=== PATIENT | male | born 1995 | race Caucasian/White ===

== ENCOUNTER 2016-04-17 22:55 | Emergency (ER) | payer OTHER ==
[~2016-04-17] VITALS: Ht 182.9 cm; Wt 81.6 kg
--- OUTSIDE RECORDS SUMMARY | 2016-04-17 23:01 | XMS REPORT | Referral Summary ---
Author Author [facility] Organization [facility] Address Unknown Phone Unavailable Care Team Providers Care Endorsement Clerk Name Role Phone Gurwinder Lilly PCP Encounter VC Date(s): 07/27/15 - 07/27/15 [facility] [employer] [facility] [address] [place] [address]- Discharge Diagnosis: Bilateral myopia Discharge Disposition: 01-Home or Self Care Attending Physician: Chicho Coombs OD Admitting Physician: Chicho Coombs OD Vital Signs No data available for this section Problem List Condition Effective Dates Status Health Status Informant Ankle fracture, < 01/27/14 Resolved right(Confirmed) Chronic Active anxiety(Confirmed) Proximal LT Thumb 01/30/12 - 01/27/14 Resolved phalanx base fracture DOI 01/22/2012 REC(Confirmed) Allergies, Adverse Reactions, Alerts Substance Reaction Severity Status codeine Active Medications fexofenadine Oral, 0 Refill(s) Start Date: 03/09/15 Status: OrderedFlonase 50 mcg/inh nasal spray 1 sprays, Nasal, BID, # 16 g, 0 Refill(s), Pharmacy: [email or web address] #[id number] Start Date: 03/09/15 Status: OrderedMiscellaneous DME DME Item Biofinity 8.6 -1.50 -1.50 order 2 bxs and mail to home. USED EYE MED ON GLASSES, Last Exam: 11/17/14, # 1 Each, 0 Refill(s), Supply Start Date: 11/24/14 Status: Ordered Results No data available for this section Immunizations Vaccine Date Refusal Reason tetanus/diphth/pertuss (Tdap) adult/adol 09/09/08 diphtheria/pertussis, acel/tetanus ped 11/14/01 diphtheria/pertussis, acel/tetanus ped 05/11/98 diphtheria/pertussis, whole cell/tetanus 05/11/97 diphtheria/pertussis, whole cell/tetanus 03/15/97 diphtheria/pertussis, whole cell/tetanus 01/06/97 haemophilus b conjugate (HbOC) vaccine 11/10/97 haemophilus b conjugate (HbOC) vaccine 05/11/97 haemophilus b conjugate (HbOC) vaccine 03/15/97 haemophilus b conjugate (HbOC) vaccine 01/06/97 hepatitis A pediatric vaccine 09/12/09 hepatitis A pediatric vaccine 09/09/08 hepatitis B pediatric vaccine 05/11/97 hepatitis B pediatric vaccine 01/06/97 hepatitis B pediatric vaccine 96 influenza virus vaccine, live 04/07/13 influenza virus vaccine, live 02/17/12 measles/mumps/rubella virus vaccine 11/14/01 measles/mumps/rubella virus vaccine 11/10/97 meningococcal conjugate vaccine 10/04/14 meningococcal conjugate vaccine 09/09/08 poliovirus vaccine, inactivated 11/14/01 poliovirus vaccine, inactivated 05/11/97 poliovirus vaccine, inactivated 03/15/97 poliovirus vaccine, inactivated 01/06/97 varicella virus vaccine 09/09/08 varicella virus vaccine 11/10/97 Procedures Procedure Date Related Diagnosis Body Site CLOSED TX OF THE RT ANKLE MED MAL FX 07/07/09 Adenoidectomy hernia Tonsillectomy Social History Social History Type Response Smoking Status Former smoker; Type: Chews tobacco Assessment and Plan Extracted from: Title: Ambulatory Patient Education Author: Chicho Coombs OD Date: Ophthalmology Myopia Nearsightedness (myopia) is when objects that are far away cannot be seen clearly. This usually happens because the eye is either longer than normal or bends (refracts) the light too much. As a result, the image is blurred. Myopia also often develops in the pre-teen years and progresses through the teens. You may see them holding things close to their eyes to see. You may also notice children sitting close to the television or white board in school. It generally stabilizes by the end of the teenage years. Myopia that continues to develop is called progressive myopia. CAUSES Growth spurts in children. Certain drugs and medicines. Some other causes of myopia (secondary myopia) can happen from other medical conditions such as: Developing cataracts. High blood sugar (e.g. uncontrolled diabetes). . Premature . Other diseases of the eye. SYMPTOMS People with myopia have blurred vision in the affected eye(s) for anything far away, but can usually find a point up close at which they can see clearly. DIAGNOSIS An anthropological linguist or railroad car cleaning supervisor can diagnose myopia with tests using a series of lenses in front of the eye and the eye reading chart. TREATMENT Glasses or contact lenses. Ophthalmologists can use painless laser treatments to change the shape of the clear covering at the front of the eye (cornea). SEEK IMMEDIATE MEDICAL CARE IF: You get a rapid blurring of vision in one or both eyes. This information is not intended to replace advice given to you by your health care provider. Make sure you discuss any questions you have with your health care provider. Document Released: 03/25/2006 Document Revised: 06/16/2012 Document Reviewed: [facility] Patient Information 2015 [employer]. No follow up information was provided. Extracted from: Title: Contact Lens Eye Exam am Author: Chicho Coombs OD Date: 07/27/15 Impression and Plan Diagnosis Bilateral myopia ([id number] H52.13, Discharge, Medical). Plan: Procedure, Spectacle prescription and contact lens information. . Patient Instructions: Myopia, 1 year. Prescription: Ophthalmology Rx (ST) Trials given Air Optix Aqua8.6/-1.50 Air Optix Aqua8.6/-1.50 Call [place] .
[2016-04-17] MEDS ORDERED: LACTATED RINGERS 1,000 ML IV ONE (23:29)
[2016-04-17] MEDS ORDERED: KETOROLAC 30 MG/ML VIAL IVP ONE (23:30)
[2016-04-17] MEDS ORDERED: ONDANSETRON 4 MG/2 ML (SDV) Z0FRAN IVP ONE (23:30)
[2016-04-17 23:36] LABS: BASOPHILS % (AUTO) 0 % (0-10); EOSINOPHILS % (AUTO) 0 % (0-10); LYMPHOCYTES # (AUTO) 1.4 X 10^3 (1.0-4.0); LYMPHOCYTES % (AUTO) 13 % (12-44); MEAN CORPUSCULAR HEMOGLOBIN 31 PG (25-34); MEAN CORPUSCULAR HGB CONC 38 G/DL (32-36); MEAN CORPUSCULAR VOLUME 81 FL (80-99); MEAN PLATELET VOLUME 11.3 FL (7.4-10.4); MONOCYTES # (AUTO) 1.2 X 10^3 (0.0-1.0); MONOCYTES % (AUTO) 12 % (0-12); NEUTROPHILS # (AUTO) 7.8 X 10^3 (1.8-7.8); NEUTROPHILS % (AUTO) 74 % (42-75); PLATELET COUNT 213 10^3/uL (130-400); RED BLOOD COUNT 5.59 10^6/uL (4.35-5.85); RED CELL DISTRIBUTION WIDTH 11.9 % (10.0-14.5); WHITE BLOOD COUNT 10.5 10^3/uL (4.3-11.0)
[2016-04-17 23:55] LABS: ALANINE AMINOTRANSFERASE 15 U/L (0-55); ALBUMIN 4.9 G/DL (3.2-4.5); ALCOHOL < 10 MG/DL (<10); ANION GAP 14 MMOL/L (5-14); ASPARTATE AMINO TRANSFERASE 18 U/L (5-34); BILIRUBIN,TOTAL 1.3 MG/DL (0.1-1.0); BLOOD UREA NITROGEN 18 MG/DL (7-18); BUN/CREATININE RATIO 19; CALCIUM 9.4 MG/DL (8.5-10.1); CARBON DIOXIDE 19 MMOL/L (21-32); CHLORIDE 102 MMOL/L (98-107); CREATININE SERUM 0.95 MG/DL (0.60-1.30); GFR ESTIMATED > 60; GLUCOSE 100 MG/DL (70-105); LIPASE 35 U/L (8-78); MAGNESIUM 2.3 MG/DL (1.8-2.4); POTASSIUM 3.6 MMOL/L (3.6-5.0); SODIUM 135 MMOL/L (135-145); TOTAL PROTEIN 7.7 G/DL (6.4-8.2)
[2016-04-18] MEDS ORDERED: NS IV 1000 ML 1,000 ML IV ONE (00:02)
[2016-04-18 00:19] LABS: BILIRUBIN,URINE NEGATIVE (NEGATIVE); KETONES,URINE NEGATIVE (NEGATIVE); LEUKOCYTE ESTERASE ,URINE NEGATIVE (NEGATIVE); NITRITE,URINE NEGATIVE (NEGATIVE); PH,URINE 6 (5-9); PROTEIN,URINE NEGATIVE (NEGATIVE); UROBILINOGEN,URINE NORMAL (NORMAL)
[2016-04-18] MEDS ORDERED: RX-HYOSCYAMINE 0.125 MG SL (LEVSIN) PPK#6 SL STA (01:26)
[2016-04-18] MEDS ORDERED: RX-ONDANSETRON 4 MG ODT (ZOFRAN) PPK #4 SL STA (01:26)
[2016-04-18] MEDS ORDERED: AMOX500C2 PO (01:34)
--- NOTE | 2016-04-18 01:34 | ED General ---
General Chief Complaint: Abdominal/GI Problems Stated Complaint: FLU SYMPTOMS Nursing Triage Note: pt was diagnosed with the stomach flu today at u. diarrhea was unrelieved by meds prescribed to him. Source of Information: Patient Exam Limitations: No Limitations History of Present Illness Time Seen by Provider: 23:20 Initial Comments This 20-year-old male presents to the emergency room with complaints of vomiting and diarrhea today. He also reports having constant congestion and cough for the past 3 weeks. He was seen at [facility] earlier today and was prescribed antidiarrheal medication. This treatment has not been effective. He denies any recent drug or alcohol abuse but admitted to using marijuana about one week ago. He reports cough is improving but GI symptoms are worsening. He has mild generalized abdominal pain and myalgias. Allergies and Home Medications Allergies Coded Allergies: codeine (Unverified Adverse Reaction, Unknown, 04/17/16) Home Medications Amoxicillin 500 Mg Capsule #40 1,000 MG PO BID Prescribed by: AUSTIN RENDON on 04/18/16 0134 Constitutional: no symptoms reportedNo fever EENTM: no symptoms reported Respiratory: see HPI Cardiovascular: no symptoms reported Gastrointestinal: see HPI Genitourinary: no symptoms reported Musculoskeletal: see HPI Skin: no symptoms reported Psychiatric/Neurological: No Symptoms Reported Hematologic/Lymphatic: No Symptoms Reported Past Hvocuvp-Ptebsi-Gfqsbu Hx Patient Social History Alcohol Use: Occasionally Uses Recreational Drug Use: Yes (marijuana) Smoking Status: Never a Smoker Recent Foreign Travel: No Contact w/Someone Who Travel: No Recent Infectious Disease Expo: No Recent Hopitalizations: No Physical Abuse Screen: No Sexual Abuse: No Seasonal Allergies Seasonal Allergies: Yes Surgeries HX Surgeries: Yes (hernia repair) Surgeries: Tonsillectomy Respiratory Hx Respiratory Disorders: No Cardiovascular Hx Cardiac Disorders: No Neurological Hx Neurological Disorders: No Reproductive System Hx Reproductive Disorders: No Genitourinary Hx Genitourinary Disorders: No Gastrointestinal Hx Gastrointestinal Disorders: No Musculoskeletal Hx Musculoskeletal Disorders: No Endocrine Hx Endocrine Disorders: No HEENT HX ENT Disorders: No Cancer Hx Cancer: No Psychosocial Hx Psychiatric Problems: No Integumentary HX Skin/Integumentary Disorder: No Family Medical History Significant Family History: No Pertinent Family Hx Physical Exam Vital Signs Vital Sign - Last 12Hours 04/17/16 04/18/16 23:09 01:30 Temp 99.2 Pulse 89 Resp 18 B/P 119/72 Pulse Ox 95 O2 Delivery Room Air Capillary Refill : General Appearance: WD/WN Mild Distress HEENT: PERRL/EOMI Normal ENT Inspection Pharynx Normal TM Abnormal (R) (Mild erythema with visible effusion) Neck: Normal Inspection Supple Respiratory: Lungs Clear Normal Breath Sounds No Accessory Muscle Use No Respiratory Distress Cardiovascular: Regular Rate, Rhythm No Edema No Murmur Gastrointestinal: Normal Bowel Sounds Soft Tenderness (Mild and generalized) Extremity: Normal Inspection No Pedal Edema Neurologic/Psychiatric: Alert Oriented x3 No Motor/Sensory Deficits Normal Mood/Affect master baker II-XII Norm as Tested Skin: Normal Color Warm/Dry Progress/Results/Core Measures Results/Orders Lab Results Laboratory Tests Test 04/17/16 23:13 Range/Units Alanine Aminotransferase (ALT/SGPT) 15 0-55 U/L Albumin 4.9 H 3.2-4.5 G/DL Alkaline Phosphatase 85 40-136 U/L Anion Gap 14 5-14 MMOL/L Aspartate Amino Transf (AST/SGOT) 18 5-34 U/L BUN/Creatinine Ratio 19 Basophils # (Auto) 0.0 0.0-0.1 10^3/uL Basophils (%) (Auto) 0 0-10 % Blood Urea Nitrogen 18 7-18 MG/DL Calcium Level 9.4 8.5-10.1 MG/DL Carbon Dioxide Level 19 L 21-32 MMOL/L Chloride Level 102 98-107 MMOL/L Creatinine 0.95 0.60-1.30 MG/DL Eosinophils # (Auto) 0.0 0.0-0.3 10^3/uL Eosinophils (%) (Auto) 0 0-10 % Estimat Glomerular Filtration Rate > 60 Glucose Level 100 70-105 MG/DL Hematocrit 45 40-54 % Hemoglobin 17.2 13.3-17.7 G/DL Lipase 35 8-78 U/L Lymphocytes # (Auto) 1.4 1.0-4.0 X 10^3 Lymphocytes (%) (Auto) 13 12-44 % Magnesium Level 2.3 1.8-2.4 MG/DL Mean Corpuscular Hemoglobin 31 25-34 PG Mean Corpuscular Hemoglobin Concent 38 H 32-36 G/DL Mean Corpuscular Volume 81 80-99 FL Mean Platelet Volume 11.3 H 7.4-10.4 FL Monocytes # (Auto) 1.2 H 0.0-1.0 X 10^3 Monocytes (%) (Auto) 12 0-12 % Neutrophils # (Auto) 7.8 1.8-7.8 X 10^3 Neutrophils (%) (Auto) 74 42-75 % Platelet Count 213 130-400 10^3/uL Potassium Level 3.6 3.6-5.0 MMOL/L Red Blood Count 5.59 4.35-5.85 10^6/uL Red Cell Distribution Width 11.9 10.0-14.5 % Serum Alcohol < 10 <10 MG/DL Sodium Level 135 135-145 MMOL/L Total Bilirubin 1.3 H 0.1-1.0 MG/DL Total Protein 7.7 6.4-8.2 G/DL White Blood Count 10.5 4.3-11.0 10^3/uL My Orders Orders-AUSTIN PETTIT MD Alcohol (04/17/16 23:29) Cbc With Automated Diff (04/17/16 23:29) Comprehensive Metabolic Panel (04/17/16 23:29) Drug Screen Stat (Urine) (04/17/16 23:29) Lipase (04/17/16 23:29) Magnesium (04/17/16 23:29) Ua Culture If Indicated (04/17/16 23:29) Saline Lock/Iv-Start (04/17/16 23:29) Lactated Ringers (Lr 1000 Ml Iv Solution (04/17/16 23:29) Ondansetron Injection (Zofran Injectio (04/17/16 23:30) Ketorolac Injection (Toradol Injection) (04/17/16 23:30) Ns Iv 1000 Ml (Sodium Chloride 0.9%) (04/18/16 00:02) Rx-Ondansetron Po (Rx-Zofran Po) (04/18/16 01:26) Rx-Hyoscyamine Tab (Rx-Levsin Sl) (04/18/16 01:26) Medications Given in ED Vital Signs/I&O Progress Note : Progress Note Patient was treated with Toradol, Zofran, and IV fluids with good results. Workup was relatively unremarkable. He was discharged with take-home packets of Levsin and Zofran. Departure Impression Impression: Primary Impression: Nausea vomiting and diarrhea Additional Impressions: Generalized abdominal pain Right otitis media Qualified Code: H66.001 - Acute suppurative otitis media without spontaneous rupture of ear drum, right ear Disposition: 01 HOME, SELF-CARE Condition: Improved Departure-Patient Inst. Decision time for Depature: 01:15 Referrals: [facility] (PCP/Family) Primary Care Physician Patient Instructions: Acute Abdomen (Belly Pain), Child (DC), Ear Infections ( Otitis Media), Viral Gastroenteritis Add. Discharge Instructions: Consume primarily clear liquids until symptoms improve. You may take Tylenol up to 1000 mg every 6 hours as needed for pain. For pain not controlled by Tylenol, add ibuprofen up to 600 mg every 6 hours as needed. You may take Levsin (hyoscyamine) dissolved under the tongue every 4 hours as needed for abdominal cramping and diarrhea. You may take Zofran (ondansetron) dissolved under the tongue every 4 hours as needed for nausea and vomiting. To emergency room if symptoms worsen. Start the antibiotic for your ear infection once the nausea and vomiting resolve. All discharge instructions reviewed with patient and/or family. Voiced understanding. Scripts Amoxicillin 500 Mg Capsule1,000 Mg PO BID #40 CAP Prov:AUSTIN PETTIT MD 04/18/16 AUSTIN PETTIT MD Apr 18, 2016 01:34 Departure Impression Impression: Primary Impression: Nausea vomiting and diarrhea Additional Impressions: Generalized abdominal pain Right otitis media Qualified Code: H66.001 - Acute suppurative otitis media without spontaneous rupture of ear drum, right ear Disposition: 01 HOME, SELF-CARE Condition: Improved Departure-Patient Inst. Decision time for Depature: 01:15 Referrals: [facility] (PCP/Family) Primary Care Physician Patient Instructions: Acute Abdomen (Belly Pain), Child (DC), Ear Infections ( Otitis Media), Viral Gastroenteritis Add. Discharge Instructions: Consume primarily clear liquids until symptoms improve. You may take Tylenol up to 1000 mg every 6 hours as needed for pain. For pain not controlled by Tylenol, add ibuprofen up to 600 mg every 6 hours as needed. You may take Levsin (hyoscyamine) dissolved under the tongue every 4 hours as needed for abdominal cramping and diarrhea. You may take Zofran (ondansetron) dissolved under the tongue every 4 hours as needed for nausea and vomiting. To emergency room if symptoms worsen. Start the antibiotic for your ear infection once the nausea and vomiting resolve. All discharge instructions reviewed with patient and/or family. Voiced understanding. Scripts Amoxicillin 500 Mg Capsule1,000 Mg PO BID #40 CAP Prov:AUSTIN PETTIT MD 04/18/16 AUSTIN PETTIT MD Apr 18, 2016 01:34
== END 2016-04-18 01:50 | disposition home or self-care (01) ==
LOC: ER 22:58
DX: R11.2 Nausea with vomiting, unspecified (principal); R19.7 Diarrhea, unspecified; R10.84 Generalized abdominal pain; H66.92 Otitis media, unspecified, left ear
CPT/HCPCS: 36415; 80053; 80306; 80320; 81000; 83690; 83735; 85025; 96361; 96374; 96375

== ENCOUNTER 2016-12-12 19:23 | Emergency (ER) | payer OTHER ==
[~2016-12-12] VITALS: Ht 182.9 cm; Wt 81.6 kg
[~2016-12-12 19:23] MED LIST: AMOX500C2 PO
--- OUTSIDE RECORDS SUMMARY | 2016-12-12 19:29 | XMS REPORT | Referral Summary ---
Author Author [facility] Organization [facility] Address Unknown Phone Unavailable Care Team Providers Care Chief Crew Scheduler Name Role Phone Fransico Lilly PCP Encounter VC Date(s): 09/20/14 - 09/20/14 [facility] [address] [place] [address] [facility] Discharge Diagnosis: Abdominal pain Discharge Disposition: 01-Home or Self Care Attending Physician: Zeny Urbina Attending Physician: Provider, Immediate Care Vital Signs Most recent to 1 oldest [Reference Range]: Temperature Oral 36.3 degC [36.0-37.6 degC] (09/20/14 8:45 AM) Peripheral Pulse 75 bpm Rate [55-90 bpm] (09/20/14 8:45 AM) Blood Pressure 130/49 mmHg [90-138/45-84 mmHg] (09/20/14 8:45 AM) SpO2 98 % (09/20/14 8:45 AM) Problem List Condition Effective Dates Status Health Status Informant Ankle fracture, < 01/27/14 Resolved right(Confirmed) Chronic Active anxiety(Confirmed) Proximal LT Thumb 01/30/12 - 01/27/14 Resolved phalanx base fracture DOI 01/22/2012 REC(Confirmed) Allergies, Adverse Reactions, Alerts Substance Reaction Severity Status codeine Active Medications fexofenadine Oral, 0 Refill(s) Start Date: 03/09/15 Status: Ordered Flonase 50 mcg/inh nasal spray 1 sprays, Nasal, BID, # 16 g, 0 Refill(s), Pharmacy: [facility] #[id number] Start Date: 03/09/15 Status: Ordered Miscellaneous DME DME Item Biofinity 8.6 -1.50 -1.50 order 2 bxs and mail to home. USED EYE MED ON GLASSES, Last Exam: 11/17/14, # 1 Each, 0 Refill(s), Supply Start Date: 11/24/14 Status: Ordered Results Hematology Most recent to 1 oldest [Reference Range]: WBC [5.0-10.0 6.0 10*3/uL 10*3/uL] (09/20/14 9:36 AM) RBC [4.20-6.00 5.09 10*6/uL 10*6/uL] (09/20/14 9:36 AM) Hgb [14.0-18.0 15.8 gm/dL gm/dL] (09/20/14 9:36 AM) Hct [40.0-54.0 %] 44.2 % (09/20/14 9:36 AM) MCV [80.0-96.0 fL] 86.8 fL (09/20/14 9:36 AM) MCH [26.0-34.0 pg] 31.0 pg (09/20/14 9:36 AM) MCHC [32.0-36.0 35.7 gm/dL gm/dL] (09/20/14 9:36 AM) RDW [0.0-14.5 %] 12.6 % (09/20/14 9:36 AM) Platelet [150-400 316 10*3/uL 10*3/uL] (09/20/14 9:36 AM) MPV [8.8-14.8 fL] 10.2 fL (09/20/14 9:36 AM) Neutrophils [50-70 54 % %] (09/20/14 9:36 AM) Lymphocytes [20-40 34 % %] (09/20/14 9:36 AM) Monocytes [4-8 %] 10 % *HI* (09/20/14 9:36 AM) Eosinophils [0-6 %] 2 % (09/20/14 9:36 AM) Basophils [0-2 %] 1 % (09/20/14 9:36 AM) Neutro Absolute 3.25 10*3 [2.50-7.00 10*3] (09/20/14 9:36 AM) Lymph Absolute 2.06 10*3 [1.00-4.00 10*3] (09/20/14 9:36 AM) Elliott Absolute 0.57 10*3 [0.20-0.80 10*3] (09/20/14 9:36 AM) Eos Absolute 0.09 10*3 [0.00-0.60 10*3] (09/20/14 9:36 AM) Baso Absolute 0.05 10*3 [0.00-0.30 10*3] (09/20/14 9:36 AM) Immunizations Vaccine Date Refusal Reason tetanus/diphth/pertuss (Tdap) [...] tobacco Assessment and Plan Extracted from: Title: Office Visit Note Author: Zeny Urbina Date: 09/20/14 Assessment/Plan Abdominal pain Informed mother that this is probably muscle skeletal pain. Advise ice or heating pad needed for the discomfort. Tylenol ibuprofen OTC with doses is advised to reduce the discomfort. Mother will have patient follow up in the next couple days if symptoms do ongoing or sooner if it worsening. Marcelo understand and agrees. Patient discharged stable condition. Ordered: Office Visit Level 3 Est [id number]
--- OUTSIDE RECORDS SUMMARY | 2016-12-12 19:29 | XMS REPORT | Referral Summary ---
Author Author [facility] Organization [facility] Address Unknown Phone Unavailable Care Team Providers Care Accountant Certified Public Name Role Phone Fransico Lilly PCP Encounter VC Date(s): 07/27/15 - 07/27/15 [facility] [address], [place] [address] Discharge Diagnosis: Bilateral myopia Discharge Disposition: 01-Home [...] BID, # 16 g, 0 Refill(s), Pharmacy: [facility] #[id number] Start Date: 03/09/15 Status: Ordered Miscellaneous DME [...] which they can see clearly. DIAGNOSIS An controls design engineer or nuclear equipment operator can diagnose myopia with tests using a [...] Released: 03/25/2006 Document Revised: 06/16/2012 Document Reviewed: [facility] Patient Information 2015 [email or web address]. No follow up information was provided. Extracted from: Title: Contact Lens Eye Exam am Author: Chicho Coombs OD Date: 07/27/15 Impression and Plan Diagnosis Bilateral myopia ([id number] H52.13, Discharge, Medical). Plan: Procedure, Spectacle prescription and contact lens information. . Patient Instructions: Myopia, 1 year. Prescription: Ophthalmology Rx (ST) Trials given Air Optix Aqua8.6/-1.50 Air Optix Aqua8.6/-1.50 Call OK .
--- OUTSIDE RECORDS SUMMARY | 2016-12-12 19:30 | XMS REPORT | Referral Summary ---
Author Author [facility] Organization [facility] [facility] Address Unknown Phone Unavailable Care Team Providers Care Lozenge Dough Mixer Name Role Phone Fransico Lilly PCP Encounter VC Date(s): 12/31/14 - 12/31/14 [facility] [employer] [address] [place] [address]- Discharge Disposition: 01-Home or Self Care Attending Physician: Chicho Coombs OD Vital Signs No [...] BID, # 16 g, 0 Refill(s), Pharmacy: [facility] #[id number] Start Date: 03/09/15 Status: Ordered Miscellaneous DME [...] smoker; Type: Chews tobacco Assessment and Plan No data available for this section
--- OUTSIDE RECORDS SUMMARY | 2016-12-12 19:30 | XMS REPORT | Referral Summary ---
Author Author [facility] [employer] Organization [facility] [employer] Address Unknown Phone Unavailable Care Team Providers Care Swatch Maker Name Role Phone Fransico Lilly PCP Encounter VC Date(s): 11/17/15 - 11/17/15 [facility] [employer] [address], [place] [address] Discharge Disposition: 01-Home or Self Care Attending Physician: Chicho Doyle OD Admitting Physician: Chicho Doyle OD Vital Signs No data available for this section Problem List Condition Effective Dates Status Health Status Informant Ankle fracture, < 01/27/14 Resolved right(Confirmed) Chronic Active anxiety(Confirmed) Proximal LT Thumb 01/30/12 - 01/27/14 Resolved phalanx base fracture DOI 01/22/2012 REC(Confirmed) Allergies, Adverse Reactions, Alerts Substance Reaction Severity Status codeine Active Medications fexofenadine 180 mg oral tablet See Instructions, TAKE ONE TABLET BY MOUTH DAILY, # 90 tabs, 2 Refill(s), eRx: [facility] #[id number], TAKE ONE TABLET BY MOUTH DAILY Start Date: 08/19/15 Status: Ordered Flonase 50 mcg/inh nasal spray 1 sprays, Nasal, BID, # 16 g, 0 Refill(s), Pharmacy: [facility] #[id number] Start Date: 03/09/15 Status: Ordered Miscellaneous DME DME Item Air Optix Aqua 8.6 -1.50 -1.50 order 5 bxs and call [phone], Last Exam: 10/31/2015, # 1 Each, 0 Refill(s), Supply Start [...] conjugate vaccine 10/04/14 meningococcal conjugate vaccine 09/09/08 meningococcal group B vaccine 11/15/15 meningococcal group B vaccine 09/29/15 poliovirus vaccine, inactivated 11/14/01 poliovirus vaccine, inactivated [...]
--- OUTSIDE RECORDS SUMMARY | 2016-12-12 19:30 | XMS REPORT | Referral Summary ---
Author Author [facility] Organization [facility] Address Unknown Phone Unavailable Care Team Providers Care Cut Off Operator Scorer Name Role Phone Fransico Lilly PCP Encounter VC Date(s): 12/24/14 - 12/24/14 [facility] [address], [place] [address] Discharge Diagnosis: Nose congestion Discharge Disposition: 01-Home or Self Care Attending Physician: Fransico Lilly MD Admitting Physician: Fransico Lilly MD Vital Signs No data available for this [...] BID, # 16 g, 0 Refill(s), Pharmacy: [facility] #[id number] Start Date: 03/09/15 Status: Ordered Miscellaneous DME [...] tobacco Assessment and Plan Extracted from: Title: Nasal congestion Author: Fransico Lilly MD Date: 12/26/14 Assessment/Plan 1.Nose congestion Thee I believerolanda has a common viral URI or allergiescausing his symptoms. It is difficult to separate those out. I believe much of his reason for the visit today is frustration with how he feels in light of playing football. I describe some approaches to try to help. I would have them use Afrin nose spray at 2 sprayson each side of the nose tonight before the football game. I would have them use Zyrtec D twice a day for the next few days. I would also place him on just a short course of prednisonetowards allergies giving him 20 mg twice a day for just 3 days. They're to let me know if he doesn't show improvement.
--- OUTSIDE RECORDS SUMMARY | 2016-12-12 19:30 | XMS REPORT | Referral Summary ---
Author Author [facility] Organization [facility] Address Unknown Phone Unavailable Care Team Providers Care Soaping Machine Back Tender Name Role Phone Fransico Lilly PCP Encounter VC Date(s): 11/17/14 - 11/17/14 [facility] [employer] [facility] [address] [place] [address]- Discharge Disposition: 01-Home or Self Care Attending [...] BID, # 16 g, 0 Refill(s), Pharmacy: [facility] #[id number] Start Date: 03/09/15 Status: Ordered Miscellaneous DME [...]
--- OUTSIDE RECORDS SUMMARY | 2016-12-12 19:30 | XMS REPORT | Referral Summary ---
Author Author [facility] Organization [facility] Address Unknown Phone Unavailable Care Team Providers Care Stroke Program Coordinator Name Role Phone Fransico Lilly PCP Encounter [facility] Date(s): 11/15/15 - 11/15/15 [facility] [address] [place] [address]- Discharge Disposition: 01-Home or Self Care Attending [...] DAILY, # 90 tabs, 2 Refill(s), eRx: [facility] #[id number], TAKE ONE TABLET BY MOUTH DAILY Start Date: 08/19/15 Status: Ordered Flonase 50 mcg/inh nasal spray 1 sprays, Nasal, BID, # 16 g, 0 Refill(s), Pharmacy: [facility] #[id number] Start Date: 03/09/15 Status: Ordered Miscellaneous DME DME Item Air Optix Aqua 8.6 -1.50 -1.50 trials given call ok, Last Exam: , # 1 Each, 0 Refill(s), Supply Start [...]
--- OUTSIDE RECORDS SUMMARY | 2016-12-12 19:30 | XMS REPORT | Referral Summary ---
Author Author [facility] Organization [facility] Address Unknown Phone Unavailable Care Team Providers Care Modular Home Crew Member Name Role Phone Fransico Lilly PCP Encounter [facility] Date(s): 11/17/14 - 11/17/14 [facility] [address], [place] [address] Discharge Diagnosis: Myopia Discharge Disposition: 01-Home or Self Care Attending [...] BID, # 16 g, 0 Refill(s), Pharmacy: [facility] #[id number] Start Date: 03/09/15 Status: Ordered Miscellaneous DME [...] Patient Education Author: Chicho Coombs OD Date: 03/22 Ophthalmology Myopia Nearsightedness (myopia) is when objects [...] which they can see clearly. DIAGNOSIS An welder gas or buttermaker continuous churn can diagnose myopia with tests using a series of lenses in front of the eye and the eye reading chart. TREATMENT Glasses or contact lenses. Ophthalmologists can use painless laser treatments to change the shape of the clear covering at the front of the eye (cornea). SEEK IMMEDIATE MEDICAL CARE IF: You get a rapid blurring of vision in one or both eyes. Document Released: 03/25/2006 Document Revised: 06/16/2012 Document Reviewed: ExitCare Patient Information 2015 [employer]. This information is not intended to replace advice given to you by your health care provider. Make sure you discuss any questions you have with your health care provider. No follow up information was provided. Extracted from: Title: Contact Lens Eye Exam am Author: Chicho Coombs OD Date: 11/17/14 Impression and Plan Diagnosis Myopia (ICD9 367.1, Discharge, Medical). Plan: Spectacle prescription and contact lens information. . Patient Instructions: Eye - Myopia, 1 year. Prescription: Ophthalmology Rx (ST) Trials given Biofinity8.6/-1.50 Biofinity8.6/-1.50 Call [place].
--- OUTSIDE RECORDS SUMMARY | 2016-12-12 19:30 | XMS REPORT | Referral Summary ---
Author Author [facility] Organization [facility] Address Unknown Phone Unavailable Care Team Providers Care Dough Cutter Name Role Phone Fransico Lilly PCP Encounter [facility] [id number] Date(s): 04/03/16 - 04/03/16 [facility] [address] [place] [address] [facility] Discharge Diagnosis: Sore throat Discharge Diagnosis: Acute viral bronchitis Discharge Disposition: 01-Home or Self Care Attending Physician: Arelis Corrigan APRN Attending Physician: Provider, Immediate Care Admitting Physician: Provider, Immediate Care Vital Signs Most recent to 1 oldest [Reference Range]: Temperature Oral 36.4 degC [35.8-37.3 degC] (04/03/16 9:05 AM) Peripheral Pulse 75 bpm Rate [60-100 bpm] (04/03/16 9:05 AM) Blood Pressure 108/66 mmHg [90-140/60-90 mmHg] (04/03/16 9:05 AM) SpO2 98 % (04/03/16 9:05 AM) Problem List Condition Effective Dates Status Health Status Informant Ankle fracture, < 01/27/14 Resolved right(Confirmed) Chronic Active anxiety(Confirmed) Proximal LT Thumb 01/30/12 - 01/27/14 Resolved phalanx base fracture DOI 01/22/2012 REC(Confirmed) Allergies, Adverse Reactions, Alerts Substance Reaction Severity Status codeine Active Medications fexofenadine 180 mg oral tablet See Instructions, TAKE ONE TABLET BY MOUTH DAILY, # 90 tabs, 2 Refill(s), eRx: [facility] #[id number], TAKE ONE TABLET BY MOUTH DAILY Start Date: 08/19/15 Status: Ordered Flonase 50 mcg/inh nasal spray 1 sprays, Nasal, BID, # 16 g, 0 Refill(s), [email or web address][id number] Start Date: 03/09/15 Status: Ordered Miscellaneous DME DME Item Air Optix Aqua 8.6 -1.50 -1.50 order 5 bxs and call [phone], Last Exam: 10/31/2015, # 1 Each, 0 Refill(s), Supply Start Date: 11/24/14 Status: Ordered Results No data available for this section Immunizations Given and Recorded Vaccine Date Status Refusal Reason tetanus/diphth/pertuss (Tdap) adult/adol 09/09/08 Recorded diphtheria/pertussis, acel/tetanus ped 11/14/01 Given diphtheria/pertussis, acel/tetanus ped 05/11/98 Given diphtheria/pertussis, whole cell/tetanus 05/11/97 Recorded diphtheria/pertussis, whole cell/tetanus 03/15/97 Recorded diphtheria/pertussis, whole cell/tetanus 01/06/97 Recorded haemophilus b conjugate (HbOC) vaccine 11/10/97 Given haemophilus b conjugate (HbOC) vaccine 05/11/97 Given haemophilus b conjugate (HbOC) vaccine 03/15/97 Given haemophilus b conjugate (HbOC) vaccine 01/06/97 Given hepatitis A pediatric vaccine 09/12/09 Given hepatitis A pediatric vaccine 09/09/08 Given hepatitis B pediatric vaccine 05/11/97 Given hepatitis B pediatric vaccine 01/06/97 Given hepatitis B pediatric vaccine 96 Given influenza virus vaccine, live 04/07/13 Given influenza virus vaccine, live 02/17/12 Given measles/mumps/rubella virus vaccine 11/14/01 Given measles/mumps/rubella virus vaccine 11/10/97 Given meningococcal conjugate vaccine 10/04/14 Given meningococcal conjugate vaccine 09/09/08 Given meningococcal group B vaccine 11/15/15 Given meningococcal group B vaccine 09/29/15 Given poliovirus vaccine, inactivated 11/14/01 Given poliovirus vaccine, inactivated 05/11/97 Given poliovirus vaccine, inactivated 03/15/97 Given poliovirus vaccine, inactivated 01/06/97 Given varicella virus vaccine 09/09/08 Given varicella virus vaccine 11/10/97 Given Procedures Procedure Date Related Diagnosis Body Site Collection of venous blood by venipuncture 04/03/16 CLOSED TX OF THE RT ANKLE MED MAL FX 07/07/09 Adenoidectomy hernia Tonsillectomy Social History Social History Type Response Smoking Status Current some day smoker Assessment and Plan Extracted from: Title: Office Visit Note Author: Arelis Corrigan MEDICAL BILLER/CODER Date: 04/03/16 Assessment/Plan 1.Acute viral bronchitis Patient instructed on use and common side effects of medications. Discussed that bronchitis is usually viral in etiology and thus antibiotics are not indicated, show no benefit, and may actually be harmful due to the side effects such as diarrhea and C. difficile. Recommendations include adequate hydration, Tylenol and Ibuprofen for body aches and/or fever, humidifier at night, and cough medications as needed. Recommend recheck on monospot in one week if not feeling better. In the meantime, avoid any contact sports or anything that may cause trauma to the abdomen.Pt educated on usual course of illness, including that cough may occasionally last for up to 2 months. Instructed to follow up with PCP if not feeling better within a week, or sooner if new or worsening symptoms develop. Verbalizes understanding and agrees with plan and agrees, dismissed in stable condition. Ordered: Office Visit Level 3 Est 47577
--- OUTSIDE RECORDS SUMMARY | 2016-12-12 19:30 | XMS REPORT | Referral Summary ---
Author Author [facility] Organization [facility] Address Unknown Phone Unavailable Care Team Providers Care Recruit Instructor Name Role Phone Fransico Lilly PCP Encounter [facility] [id number] Date(s): 03/09/15 - 03/09/15 [facility] [address] [place] [address] [facility] Discharge Diagnosis: Acute nasopharyngitis (common cold) Discharge Diagnosis: Folliculitis Discharge Disposition: -Home or Self Care Attending Physician: Liliana Oden Attending Physician: Provider, Immediate Care Admitting Physician: Provider, Immediate Care Vital Signs Most recent to 1 oldest [Reference Range]: Temperature Oral 36.5 degC [35.8-37.3 degC] (03/09/15 8:39 AM) Peripheral Pulse 69 bpm Rate [60-100 bpm] (03/09/15 8:39 AM) Blood Pressure 111/73 mmHg [90-140/60-90 mmHg] (03/09/15 8:39 AM) SpO2 97 % (03/09/15 8:39 AM) Problem List Condition Effective Dates Status Health Status Informant Ankle fracture, < 01/27/14 Resolved right(Confirmed) Chronic Active anxiety(Confirmed) Proximal LT Thumb 01/30/12 - 01/27/14 Resolved phalanx base fracture DOI 01/22/2012 REC(Confirmed) Allergies, Adverse Reactions, Alerts Substance Reaction Severity Status codeine Active Medications Bactroban 2% topical ointment 1 abril, Topical, TID, X 10 days, # 30 g, 0 Refill(s), Pharmacy: [facility] #[id number] Start Date: 03/09/15 Stop Date: 03/19/15 Status: Ordered fexofenadine Oral, 0 Refill(s) Start Date: 03/09/15 Status: Ordered Flonase 50 mcg/inh nasal spray 1 sprays, Nasal, BID, # 16 g, 0 Refill(s), Pharmacy: [facility] #[id number] Start Date: 03/09/15 Status: Ordered ibuprofen-pseudoephedrine 200 mg-30 mg oral tablet 1 tabs, Oral, q4hr, as needed for cold symptoms, X 5 days, # 30 tabs, 0 Refill(s ) Start Date: 03/09/15 Stop Date: 03/14/15 Status: Ordered Miscellaneous DME DME Item Biofinity [...] Extracted from: Title: Office Visit Note Author: Liliana Oden Date: 03/09/15 Assessment/Plan 1.Acute nasopharyngitis (common cold) Discussed use of OTC saline nasal rinses, decongestants, and cool mist humidifier for symptomatic relief. salt water gargles, lozenges, Chloraseptic spray, hot/coldfood or drinks. Patient educational handout given and reviewed. Instructed patient on medication, use, common side effects, and administration. Instructed patient if symptoms worsen or new symptoms arise to seek medical attention here or at the ER. If no improvement of symptoms follow up with PCP in 2-3 days. Patient voiced understanding and agreed with treatment plan. Patient dismissed in stable condition. Ordered: Office Visit Level 4 Est 00906 2.Folliculitis Preventive measures are jensen to avoidance of recurrence: Antibacterial soaps (Dial soap, chlorhexidine or benzyl peroxide wash when showering/bathing). Keep skin intact; daily skin care with non-comedogenic moisturizers; avoid scratching. Clean shaving instruments daily or use disposable razor, disposing after 1 use. Change washcloths, towels, and sheets daily. Instructed patient on medication, use, common side effects, and administration. Ordered: Office Visit Level 4 Est [id number] Orders: fluticasone nasal, 1 sprays, Nasal, BID, # 16 g, 0 Refill(s), Pharmacy : [facility] #[id number] ibuprofen-pseudoephedrine, 1 tabs, Oral, q4hr, as needed for cold symptoms, X 5 days, # 30 tabs, 0 Refill(s) mupirocin topical, 1 abril, Topical, TID, X 10 days, # 30 g, 0 Refill(s), Pharmacy: [facility] #[id number] Extracted from: Title: Ambulatory Patient Education Author: Liliana Oden Date: 03/09/15 Allergy Sinusitis Sinusitis is redness, soreness, and inflammation of the paranasal sinuses. Paranasal sinuses are air pockets within the bones of your face (beneath the eyes, the middle of the forehead, or above the eyes). In healthy paranasal sinuses, mucus is able to drain out, and air is able to circulate through them by way of your nose. However, when your paranasal sinuses are inflamed, mucus and air can become trapped. Sinusitis can develop quickly and last only a short time (acute) or continue over a long period (chronic). Sinusitis that lasts for more than 12 weeks is considered chronic. CAUSES Causes of sinusitis include: Allergies. Structural abnormalities, such as displacement of the cartilage that separates your nostrils (deviated septum), which can decrease the air flow through your nose and sinuses and affect sinus drainage. Functional abnormalities, such as when the small hairs (cilia) that line your sinuses and help remove mucus do not work properly or are not present. SIGNS AND SYMPTOMS Symptoms of acute and chronic sinusitis are the same. The primary symptoms are pain and pressure around the affected sinuses. Other symptoms include: Upper toothache. Earache. Headache. Bad breath. Decreased sense of smell and taste. A cough, which worsens when you are lying flat. Fatigue. Fever. Thick drainage from your nose, which often is green and may contain pus ( purulent). Swelling and warmth over the affected sinuses. DIAGNOSIS Your health care provider will perform a physical exam. During the exam, your health care provider may: Look in your nose for signs of abnormal growths in your nostrils (nasal polyps). View the inside of your sinuses (endoscopy) using an imaging device that has a light attached (endoscope). If your health care provider suspects that you have chronic sinusitis, one or more of the following tests may be recommended: Allergy tests. Nasal culture. A sample of mucus is taken from your nose, sent to a lab, and screened for bacteria. Nasal cytology. A sample of mucus is taken from your nose and examined by your health care provider to determine if your sinusitis is related to an allergy. TREATMENT Most cases of acute sinusitis are related to a viral infection and will resolve on their own within 10 days. Sometimes medicines are prescribed to help relieve symptoms (pain medicine, decongestants, nasal steroid sprays, or saline sprays) . Rarely, sinusitis is caused by a fungal infection. In theses cases, your health care provider will prescribe antifungal medicine. For some cases of chronic sinusitis, surgery is needed. Generally, these are cases in which sinusitis recurs more than 3 times per year, despite other treatments. HOME CARE INSTRUCTIONS Drink plenty of water. Water helps thin the mucus so your sinuses can drain more easily. Use a humidifier. Inhale steam 3 to 4 times a day (for example, sit in the bathroom with the shower running). Apply a warm, moist washcloth to your face 3 to 4 times a day, or as directed by your health care provider. Use saline nasal sprays to help moisten and clean your sinuses. Take medicines only as directed by your health care provider. If you were prescribed either an antibiotic or antifungal medicine, finish it all even if you start to feel better. SEEK IMMEDIATE MEDICAL CARE IF: You have increasing pain or severe headaches. You have nausea, vomiting, or drowsiness. You have swelling around your face. You have vision problems. You have a stiff neck. You have difficulty breathing. MAKE SURE YOU: Understand these instructions. Will watch your condition. Will get help right away if you are not doing well or get worse. Document Released: 03/25/2006 Document Revised: 08/09/2014 Document Reviewed: ExitCare Patient Information 2015 [facility]. This information is not intended to replace advice given to you by your health care provider. Make sure you discuss any questions you have with your health care provider. No follow up information was provided.
--- OUTSIDE RECORDS SUMMARY | 2016-12-12 19:30 | XMS REPORT | Referral Summary ---
Author Author [facility] Organization [facility] Address Unknown Phone Unavailable Care Team Providers Care Rubber Stamp Die Inspector Name Role Phone Fransico Lilly PCP Encounter [facility] Date(s): 09/15/14 - 09/15/14 [facility] [address] [place] [address] [facility] Discharge Diagnosis: Right otitis media Discharge Disposition: 01-Home or Self Care Attending Physician: Liliana Oden Attending Physician: Provider, Immediate Care Vital Signs Most recent to 1 oldest [Reference Range]: Temperature Oral 36.7 degC [36.0-37.6 degC] (09/15/14 10:15 AM) Peripheral Pulse 70 bpm Rate [55-90 bpm] (09/15/14 10:15 AM) Blood Pressure 108/64 mmHg [90-138/45-84 mmHg] (09/15/14 10:15 AM) SpO2 97 % (09/15/14 10:15 AM) Problem List Condition Effective Dates Status [...] BID, # 16 g, 0 Refill(s), Pharmacy: [facility] #[id number] Start Date: 03/09/15 Status: Ordered Miscellaneous DME [...] Office Visit Note Author: Liliana Oden Date: 09/15/14 Assessment/Plan 1.Right otitis media Instructed patient on medication, use, common side effects, and administration. Discussed proper OTC medication, including Tylenol or ibuprofen, for symptomatic relief. Instructed patient if symptoms worsen or new symptoms arise to seek medical attention here or at the ER. If no improvement of symptoms follow up with PCP in 2-3 days. Patient voiced understanding and agreed with treatment plan. Patient dismissed in stable condition. Patient requested IV fluids. Discussed with patient that his vital signs are stable, mucus membranes are moist, and no urine out put so I do not feel there is a medical need for IV fluids at this time. Discussed use of small frequent sips of water, ice chips, and/or popsicles for oral hydration. Discussed use of Pedialyte or Gatorade for hydration. Ordered: Office Visit Level 3 Est [id number] Orders: amoxicillin, 500 mg 1 tabs, Oral, BID, X 10 days, # 20 tabs, 0 Refill( s), Pharmacy: [facility] #[id number], 1 tabs Oral BID,x10 days antipyrine-benzocaine otic, 2 drops, Ear-Both, q4hr, as needed for pain, X 5 days, # 10 mL, 0 Refill(s), Pharmacy: [facility] #[id number]
--- OUTSIDE RECORDS SUMMARY | 2016-12-12 19:31 | XMS REPORT | Referral Summary ---
Author Author [facility] Organization [facility] Address Unknown Phone Unavailable Care Team Providers Care Swing Tender Name Role Phone Fransico Lilly PCP Encounter [facility] Date(s): 10/04/14 - 10/04/14 [facility] [address] [place] [address]- Discharge Diagnosis: Neck injury Discharge Diagnosis: Well adolescent visit Discharge Diagnosis: Concussion without loss of consciousness Discharge Diagnosis: Common wart Discharge Disposition: 01-Home or Self Care Attending Physician: Fransico Lilly MD Admitting Physician: Fransico Lilly MD Vital Signs Most recent to 1 oldest [Reference Range]: Blood Pressure 118/68 mmHg [90-138/45-84 mmHg] (10/04/14 2:54 PM) Problem List Condition Effective Dates Status Health [...] BID, # 16 g, 0 Refill(s), Pharmacy: [facility] #[id number] Start Date: 03/09/15 Status: Ordered Miscellaneous DME DME Item Biofinity 8.6 -1.50 -1.50 order 2 bxs and mail to home. USED EYE MED ON GLASSES, Last Exam: 11/17/14, # 1 Each, 0 Refill(s), Supply Start Date: 8/19/15 Status: Ordered Results No data available for [...] tobacco Assessment and Plan Extracted from: Title: Well-child check/head injury Author: Fransico Lilly MD Date: 10/04 Assessment/Plan 1.Well adolescent visit Overall, his health is reasonable. Some of his mood challenges of the past perhaps it faded a little. His vaccines are current. I will continue see him for annual exams. 2.Neck injury I obtained a plain x-ray which does not reveal any fracture. We talked about taking Aleve twice a day regularly for one week and significantly reducing his activities in preparation for football this week to allow some healing to take place. I would like to see him be headache free before he goes back to conditioning. 3.Concussion without loss of consciousness This reveals itself mainly with the persistent headache. I would like to see this resolved before he goes back to conditioning. He is to not participate in sports this week and rest. I would like an update next week. 4.Common wart This was treated with liquid nitrogen freezing to what is felt to be an appropriate depth. Orders: meningococcal conjugate vaccine, IntraMuscular, Once, 0 Refill(s)
--- OUTSIDE RECORDS SUMMARY | 2016-12-12 19:31 | XMS REPORT | Referral Summary ---
Author Author [facility] Organization [facility] Address Unknown Phone Unavailable Care Team Providers Care Title Search Manager Name Role Phone Fransico Lilly PCP Encounter [facility] Date(s): 10/31/15 - 10/31/15 [facility] [address], [place] [address] Discharge Diagnosis: Bilateral myopia Discharge Disposition: 01-Home [...] DAILY, # 90 tabs, 2 Refill(s), eRx: [facility] #[id number], TAKE ONE TABLET BY MOUTH DAILY Start Date: 08/19/15 Status: Ordered Flonase 50 mcg/inh nasal spray 1 sprays, Nasal, BID, # 16 g, 0 Refill(s), Pharmacy: [facility] #[id number] Start Date: 03/09/15 Status: Ordered Miscellaneous DME DME Item Air Optix Aqua 8.6 -1.50 -1.50 pt to wear, Last Exam: 11/17/14, # 1 Each, 0 [...] conjugate vaccine 09/09/08 meningococcal group B vaccine 09/29/15 poliovirus vaccine, [...] which they can see clearly. DIAGNOSIS An boiling tub operator or manual qa tester can diagnose myopia with tests using a [...] Revised: 06/16/2012 Document Reviewed: ExitCare Patient Information 2016 [employer]. No follow up information was provided. Extracted from: Title: Contact Lens Eye Exam am Author: Chicho Coombs OD Date: 10/31/15 Impression and Plan Diagnosis Bilateral myopia (EHS64-RB H52.13, Discharge, Medical). Plan: Procedure, Spectacle prescription and contact lens information. . Patient Instructions: Myopia, 1 year. Prescription: Ophthalmology Rx (ST) Trials given Air Optix Aqua8.6/-1.50 Air Optix Aqua8.6/-1.50 Call [place] .
--- OUTSIDE RECORDS SUMMARY | 2016-12-12 19:31 | XMS REPORT | Referral Summary ---
Author Author [facility] Organization [facility] Address Unknown Phone Unavailable Care Team Providers Care Computer Numerical Control Operator Name Role Phone Fransico Lilly PCP Encounter [facility] Date(s): 11/24/14 - 11/24/14 [facility] [address] [place] [address]- Discharge Disposition: 01-Home or Self Care Attending [...] BID, # 16 g, 0 Refill(s), Pharmacy: [facility] #[id number] Start Date: 03/09/15 Status: Ordered Miscellaneous DME [...]
--- NOTE | 2016-12-12 21:23 | ED Lower Extremity ---
General Chief Complaint: Lower Extremity Stated Complaint: RT KNEE INJ Nursing Triage Note: c/o R knee pain after playing basketball Nursing Sepsis Screen: No Definite Risk Source: patient Exam Limitations: no limitations History of Present Illness Time seen by provider: 21:15 Initial Comments Here with report of right knee pain after coming down on it wrong while playing basketball. He felt a pop and has pain to the anterior portion of the knee. He is able to walk, but states hurts really bad. Denies other injury. Onset: just prior to arrival Severity: moderate Pain/Injury Location: right knee Method of Injury: fell, sports injury, twisted Modifying Factors: Improves With Immobilization, Worse With Movement, Improves With Rest Allergies and Home Medications Allergies Coded Allergies: codeine (Unverified Adverse Reaction, Unknown, 04/17/16) Home Medications No Active Prescriptions or Reported Meds Constitutional: see HPI, No chills, No fever Respiratory: no symptoms reported Cardiovascular: no symptoms reported Musculoskeletal: see HPI, joint pain, joint swelling Skin: no symptoms reported Psychiatric/Neurological: No Symptoms Reported Past Nfzddbg-Mqmabp-Lofunc Hx Patient Social History Alcohol Use: Denies Use Recreational Drug Use: No Recent Foreign Travel: No Contact w/Someone Who Travel: No Recent Infectious Disease Expo: No Recent Hopitalizations: No Physical Abuse: No Sexual Abuse: No Seasonal Allergies Seasonal Allergies: Yes Surgeries History of Surgeries: Yes (hernia repair) Surgeries: Tonsillectomy Respiratory History of Respiratory Disorde: No Cardiovascular History of Cardiac Disorders: No Neurological History of Neurological Disord: No Reproductive System Hx Reproductive Disorders: No Gastrointestinal History of Gastrointestinal Di: No Musculoskeletal History of Musculoskeletal Dis: No Endocrine History of Endocrine Disorders: No Cancer History of Cancer: No Psychosocial History of Psychiatric Problem: No Suicide Risk Score: 0 Integumentary History of Skin or Integumenta: No Reviewed Nursing Assessment Reviewed/Agree w Nursing PMH: Yes Family Medical History Significant Family History: No Pertinent Family Hx Physical Exam Vital Signs Vital Sign - Last 12Hours 12/12/16 20:35 Temp 98.2 Pulse 62 Resp 18 B/P (MAP) 132/64 Pulse Ox 99 Capillary Refill : Less Than 3 Seconds General Appearance: WD/WN, no apparent distress Cardiovascular: regular rate, rhythm, no murmur Respiratory: lungs clear, normal breath sounds Knees: left knee non-tender, left knee normal inspection, left knee normal range of motion, right knee pain, right knee soft tissue tenderness, right knee swelling (mild anterior peripatellar), right knee other (negative drawer and negative laxity medial or lateral. Tenderness to anterior knee bilateral and small effusion noted.) Neurologic/Psychiatric: alert, oriented x 3 Skin: normal color, warm/dry Progress/Results/Core Measures Results/Orders My Orders Orders - SHANA COULTER MD Knee, Right, 3 Views (12/12/16 20:41) Hydrocodone/Apap 7.5/325 Tab (Lortab 7. (12/12/16 21:25) Ibuprofen Tablet (Motrin Tablet) (12/12/16 21:25) Vital Signs/I&O Vital Sign - Last 12Hours 12/12/16 20:35 Temp 98.2 Pulse 62 Resp 18 B/P (MAP) 132/64 Pulse Ox 99 Blood Pressure Mean: 86 Progress Note : Progress Note Seen and evaluated. X-ray right knee. No acute findings. Hydrocodone 7.5 one tab by mouth given. Jaleel wrap and crutches given. Ibuprofen 800 mg by mouth given. Ice pack given. Discharged home with return precautions. Patient verbalize understanding instructions and agreement with plan. Diagnostic Imaging Diagonstic Imaging: Xray Plain Films/CT/US/NM/MRI: knee Comments No acute findings Departure Impression Impression: Primary Impression: Internal derangement of right knee Disposition: 01 HOME, SELF-CARE Condition: Stable Departure-Patient Inst. Decision time for Depature: 21:31 Referrals: FEDE LITTLE DO [facility] (PCP) Primary Care Physician TIGIST RENE MD Patient Instructions: Knee Sprain (DC) Add. Discharge Instructions: All discharge instructions reviewed with patient and/or family. Voiced understanding. Use Jaleel wrap and crutches for the next several days as needed. You may take ibuprofen 800 mg every 8 hours as needed for pain. You may take Tylenol 1000 mg every 8 hours as needed for pain. Use ice packs to affected areas 20 minutes per hour as needed for the next one to 2 days to reduce swelling. Elevate leg as much as possible. Return for worse pain, fever, swelling, weakness or other concerns as needed. Follow[facility]up with [facility] for referral to orthopedics as needed. You may also call and establish appointment with orthopedist of your choice or the one listed. Scripts No Active Prescriptions or Reported Meds SHANA COULTER MD Dec 12, 2016 21:23
[2016-12-12] MEDS ORDERED: HYDROcodone/APAP 7.5 MG/325 MG (LORTAB, LORCET PLUS) TABLET PO STA (21:25)
[2016-12-12] MEDS ORDERED: IBUPROFEN 800 MG (MOTRIN) TAB PO STA (21:25)
[2016-12-12 21:38] VITALS: BP 128/62
--- NOTE | 2016-12-12 21:39 | Diagnostic Imaging Report ---
INDICATION: Right knee pain with previous fall. FINDINGS: Alignment of the knee is normal. There is no evidence of an acute fracture. There is, however, a joint effusion and internal derangement cannot be excluded. Soft tissues otherwise unremarkable. IMPRESSION: 1. No fracture or malalignment. 2. There is, however, a joint effusion. The possibility of internal derangement of the right knee cannot be excluded. Dictated by: Dictated on workstation # [id number]
== END 2016-12-12 21:37 | disposition home or self-care (01) ==
LOC: EDUNIT# 19:23 → ER 19:25
DX: S83.104A Unspecified dislocation of right knee, initial encounter (principal); Z90.89 Acquired absence of other organs; W18.30XA Fall on same level, unspecified, initial encounter; Y93.67 Activity, basketball
CPT/HCPCS: 73562; 99283

== ENCOUNTER 2020-02-22 20:37 | Emergency (ER) | payer OTHER ==
[~2020-02-22] VITALS: Ht 187 cm; Wt 90.0 kg
[2020-02-22] MEDS ORDERED: RX-ONDANSETRON 4 MG ODT (ZOFRAN) PPK #4 PO STA (20:52)
[2020-02-22 20:54] VITALS: BP 132/75
[2020-02-22] MEDS ORDERED: ANTACID SUSP 30 ML UDC (MYLANTA) ONE (20:58)
[2020-02-22] MEDS ORDERED: LIDOCAINE 2% VISCOUS 15 ML UDC ONE (20:58)
[2020-02-22] MEDS ORDERED: FAMOTIDINE 20 MG (PEPCID) TABLET PO STA (20:58)
--- NOTE | 2020-02-22 20:58 | ED Cough/URI ---
General Chief Complaint: Fever-Adult/Adol Stated Complaint: CHILLS/NAUSEA/HEADACHE/COUGH Nursing Triage Note: Pt here with n/v, chills, fever, and malaise. Onset today. Pt had an exposure to Covid last wk. Sepsis Screen: No Definite Risk Source: patient Exam Limitations: no limitations History of Present Illness Date Seen by Provider: Feb 22, 2020 Time Seen by Provider: 20:37 Initial Comments The patient arrives to ER by private conveyance with chief complaint of body aches malaise nausea fever chills. His fevers are subjective. He has not taken any medications for his symptoms started today. He felt malaise yesterday. He spent last week with a friend who was diagnosed last week with COVID 19. He is having no diarrhea loss of sense of taste or smell. No other significant medical history. He does have a history of a right inguinal hernia repair, anterior cruciate ligament repair and TNA. He's having some epigastric abdominal discomfort. He says he feels that his stomach is turning on itself. Allergies and Home Medications Allergies Coded Allergies: codeine (Unverified Adverse Reaction, Unknown, 04/17/16) Home Medications No Active Prescriptions or Reported Meds Patient Home Medication List Home Medication List Reviewed: Yes Review of Systems Review of Systems Constitutional: No chills, No diaphoresis EENTM: No ear pain, No eye pain Respiratory: cough; No short of breath, No wheezing Cardiovascular: No chest pain, No Hx of Intervention Gastrointestinal: see HPI, abdominal pain; No constipation, No diarrhea, No dysphagia; nausea, vomiting Genitourinary: No discharge, No dysuria Musculoskeletal: see HPI; No back pain, No joint pain All Other Systems Reviewed Negative Unless Noted: Yes Past Luvvrkj-Vzymwn-Oqyldg Hx Patient Social History Alcohol Use: Occasionally Uses Recreational Drug Use: Yes Drug of Choice: cannabis Smoking Status: Current Everyday Smoker Type Used: Cigarettes Recent Foreign Travel: No Contact w/Someone Who Travel: No Recent Infectious Disease Expo: Yes Recent Hopitalizations: No Seasonal Allergies Seasonal Allergies: Yes Past Medical History Surgeries: Yes (hernia repair) Tonsillectomy Respiratory: No Cardiac: No Neurological: No Reproductive Disorders: No Gastrointestinal: No Musculoskeletal: No Endocrine: No Cancer: No Psychosocial: No Integumentary: No Family Medical History No Pertinent Family Hx Physical Exam Vital Signs - First Documented 02/22/20 20:54 Temp 38.6 Pulse 74 Resp 18 B/P (MAP) 132/75 (94) Pulse Ox 99 O2 Delivery Room Air Capillary Refill : Less Than 3 Seconds Height: 6'" Weight: 180lbs. oz. 81.548958um; 25.00 BMI Method:Stated General Appearance: WD/WN, mild distress Eyes: Bilateral Eye Normal Inspection, Bilateral Eye PERRL, Bilateral Eye EOMI HEENT: PERRL/EOMI, normal ENT inspection, pharynx normal Neck: full range of motion, supple, normal inspection Respiratory: lungs clear, normal breath sounds, no respiratory distress, no accessory muscle use Cardiovascular: normal peripheral pulses, regular rate, rhythm Gastrointestinal: normal bowel sounds, soft, tenderness (mild midepigastric without Rovsing sign, McBurney's point tenderness, Saleh's sign or psoas sign. No mesenteric signs.) Extremities: normal inspection, normal capillary refill Neurologic/Psychiatric: alert, normal mood/affect, oriented x 3 Skin: normal color, warm/dry Progress/Results/Core Measures Suspected Sepsis Recent Fever Within 48 Hours: Yes Infection Criteria Present: Suspected New Infection New/Unexplained Altered Menta: No Sepsis Screen: No Definite Risk SIRS Temperature: Pulse: 74 Respiratory Rate: 18 Blood Pressure 132 /75 Mean: 94 Results/Orders Lab Results Laboratory Tests Test 02/22/20 20:51 Range/Units Micro Results Microbiology 02/22/20 Influenza Types A,B Antigen (CONRAD) - Final, Complete My Orders Orders - CEDRIC VARGAS Ketorolac Injection (Toradol Injection) (02/22/20 21:00) Rx-Ondansetron Po (Rx-Zofran Po) (02/22/20 20:52) Coronavirus Sars-Cov-2 So 2018 (02/22/20 20:52) Influenza A And B Antigens (02/22/20 20:52) Lidocaine 2% Viscous 15 Ml (Xylocaine Vi (02/22/20 21:00) Famotidine Tablet (Pepcid Tablet) (02/22/20 20:58) Antacid Suspension (Mylanta Suspension (02/22/20 21:00) Antacid Suspension (Mylanta Suspension (02/22/20 20:58) Lidocaine 2% Viscous 15 Ml (Xylocaine Vi (02/22/20 20:58) Medications Given in ED Current Medications Medications Dose Ordered Sig/Zeb Route Start Time Stop Time Status Last Admin Dose Admin Al Hydrox/Mg Hydrox/Simethicone 30 ml ONCE ONCE PO 02/22/20 21:00 02/22/20 21:01 DC 02/22/20 21:05 30 ML Ketorolac Tromethamine 60 mg ONCE ONCE IM 02/22/20 21:00 02/22/20 21:01 DC 02/22/20 21:02 60 MG Lidocaine HCl 15 ml ONCE ONCE PO 02/22/20 21:00 02/22/20 21:01 DC 02/22/20 21:05 15 ML Vital Signs/I&O 02/22/20 20:54 Temp 38.6 Pulse 74 Resp 18 B/P (MAP) 132/75 (94) Pulse Ox 99 O2 Delivery Room Air Capillary Refill : Less Than 3 Seconds Blood Pressure Mean: 94 Progress Note : Time: 21:06 Progress Note Normal, aseptic vital signs and a nonsurgical abdominal exam. Plan to give him a GI cocktail and Toradol. He has declined anything for nausea. We'll treat his symptoms and he has presumed COVID-19 or some other similar viral illness with his body aches and fever. The Toradol should help with his fever. We'll get an influenza swab and reevaluate him. COVID send out. Departure Impression Primary Impression: Person under investigation for COVID-19 Additional Impression: Viral gastroenteritis Disposition: 01 HOME, SELF-CARE Condition: Stable Departure-Patient Inst. Decision time for Depature: 21:30 Referrals: [facility] (PCP) Primary Care Physician Patient Instructions: Viral Gastroenteritis, Adult (DC), Coronavirus Disease 2019 (COVID-19) Overview Add. Discharge Instructions: I suspect you have a viral gastroenteritis possibly brought on by COVID-19. If you have nausea take one tablet of ondansetron every 6 hours as necessary. If you have fever, chills or bodyaches use Tylenol and/or ibuprofen. Tylenol 1000 mg every 8 hours as necessary. Ibuprofen 800 mg every 8 hours as necessary. If you develop diarrhea you may use 2 tablets of Imodium followed by one tablet every 4 hours afterwards that you're still having loose, watery stools. Stay quarantined at home for 10 days from the start of the beginning of your symptoms and at least 72 hours symptoms free if you are positive for COVID-19. If your test is negative then you just need to be 72 hours symptoms free before returning to work and school. Have someone shredder picker your medications and groceries and bring them to your home. Rink lots of fluids. Somebody will call you with results of your COVID testing in the next couple days. Return to the nearest ER if you're having difficulty breathing, oxygen saturation consistently below 94% at rest or other worrisome symptoms. All discharge instructions reviewed with patient and/or family. Voiced understanding. Scripts Benzonatate (Tessalon Perle) 100 Mg Capsule 100 MG PO Q6H PRN for COUGH, #30 CAP 0 Refills Prov: CEDRIC VARGAS 02/22/20 Ondansetron (Ondansetron Odt) 4 Mg Tab.rapdis 4 MG PO Q6H PRN for NAUSEA/VOMITING, #8 TAB 0 Refills Prov: CEDRIC VARGAS 02/22/20 Work/School Note: Work Release Form Date Seen in the Emergency Department: Feb 22, 2020 Return to Work: Mar 02, 2020 Restrictions: No Restrictions Other Restrictions Listed Below: May return to school/work when 72 hours symptoms free. CEDRIC VARGAS Feb 22, 2020 20:58
[2020-02-22] MEDS ORDERED: ANTACID SUSP 30 ML UDC (MYLANTA) PO ONE (21:00)
[2020-02-22] MEDS ORDERED: LIDOCAINE 2% VISCOUS 15 ML UDC PO ONE (21:00)
[2020-02-22] MEDS ORDERED: KETOROLAC 60 MG/2 ML VIAL IM ONE (21:00)
--- NOTE | 2020-02-22 21:21 | NUR ---
Pt reports that his friend was diagnosed with Covid last wk; pt states he hung out with this friend last wk prior to his diagnosis. Pt reports his onset of s/s was today.
[2020-02-22] MEDS ORDERED: ONDA4TAB11 PO (21:46)
[2020-02-22] MEDS ORDERED: BENZ-13 PO (21:46)
--- NOTE | 2020-02-23 19:07 | NUR ---
Notified of positive COVID test.
== END 2020-02-22 22:07 | disposition home or self-care (01) ==
LOC: EDUNIT# 20:37 → ER 20:39
DX: U07.1 COVID-19 (principal); A08.39 Other viral enteritis; F17.210 Nicotine dependence, cigarettes, uncomplicated; Z88.5 Allergy status to narcotic agent
CPT/HCPCS: 87804; 99282; U0002; 87635